=== PATIENT | male | born 1955 | race Hispanic/Latino ===

== ENCOUNTER 2016-07-16 12:41 | Day surgery (SDC) | payer MEDICAID ==
[2015-11-02 13:17] VITALS: BMI 22.7
[2016-07-16] MEDS ORDERED: Ciprofloxacin 400mg/200ml D5W 400 MG/200 ML BAG IVPB ONE (13:34)
[2016-07-16] MEDS ORDERED: Lactated Ringer's 1,000 ML IV ONE (13:45)
[2016-07-16] MEDS ORDERED: Midazolam 2 MG/2 ML VIAL ONE (13:49)
[2016-07-16] MEDS ORDERED: Propofol 10 mg/ml Inj (20 ML) ONE (13:49)
[2016-07-16] MEDS ORDERED: HYDROmorphone 0.5 mg/0.5 ml ISec IVP PRN (15:47)
[2016-07-16 16:08] VITALS: BP 130/70; PULSE 70; RESP 18; TEMP 97.9; O2SAT 98
--- NOTE | 2016-07-16 19:23 | OP ---
PROCEDURE DATE: 07/16/2016 PREOPERATIVE DIAGNOSIS: Bladder tumor, rule out recurrent. POSTOPERATIVE DIAGNOSIS: Large bladder tumor on the dome of the bladder. PROCEDURE: Cystoscopy and transurethral resection of bladder tumor. DESCRIPTION OF THE PROCEDURE: While the patient was in lithotomy position and after starting sedatio n and later LMA, the patient given Cipro 400 mg, consent was checked and the patient identified. Pro tection for the lower extremity placed around both legs. Cystoscopy done, which revealed large prost ate, urethra normal down to the trigone, normal. The dome showed a tumor sitting with papillary, mul tiple, with a wide base. Attempt to fulgurate it was not successful, so the bladder filled, the scop e removed, TUR resectoscope sheath inserted, the tumor was resected and the base fulgurated. All the tissue was irrigated out. The patient tolerated the procedure well. After emptying the bladder, th e scope removed and patient transferred to the recovery room in stable condition. Marielena Vilchis MD cc: 43 TT: 07/16/2016 19:22:54 daisy
== END 2016-07-16 16:09 | disposition home or self-care (01) ==
LOC: C.SDS 12:41
PROVIDERS: ATTEND Specialist
DX: C67.1 Malignant neoplasm of dome of bladder (principal)
CPT/HCPCS: 52240; 82948; 88305; J0744; J7120

== ENCOUNTER 2017-06-03 11:29 | Day surgery (SDC) | payer MEDICAID ==
[2017-05-21 10:30] VITALS: BMI 25.0
[2017-06-03] MEDS ORDERED: Propofol 10 mg/ml Inj (20 ML) ONE (14:05)
[2017-06-03] MEDS ORDERED: Ciprofloxacin 400mg/200ml D5W 400 MG/200 ML BAG IVPB ONE (14:12)
[2017-06-03] MEDS ORDERED: ePHEDrine 50 mg/ml Inj ONE (14:14)
[2017-06-03] MEDS ORDERED: HYDROmorphone 0.5 mg/0.5 ml ISec IVP PRN (14:40)
[2017-06-03 16:06] VITALS: RESP 18; TEMP 97.8
[2017-06-03 17:10] VITALS: BP 104/81; PULSE 78; O2SAT 99
--- NOTE | 2017-06-04 08:13 | OP ---
PROCEDURE DATE: 06/03/2017 PREOPERATIVE DIAGNOSIS: Rule out recurrent bladder tumor. POSTOPERATIVE DIAGNOSIS: Recurrent multiple bladder tumor. PROCEDURE: Cysto, excision of all the tumor and fulguration-prostatic hypertrophy. DESCRIPTION OF PROCEDURE: While the patient in lithotomy position and after starting anesthesia, genitalia prepped and draped in sterile fashion. The patient given Cipro 400 IV piggy bag, cystoscopy performed with using 22 scope. The urethra normal. bilateral lobe enlargement and medial lobe causing partial obstruction, bladder trabeculated inspecting the bladder revealed tumor on the left trigone about 1 cm above the urethral orifice. Multiple flat lesion on the left and the flat lesion on the posterior wall of the bladder. Bladder trabeculated. All the tumor resected and fulgurated. There was no active bleeding. The patient tolerated the procedure well. After emptying the bladder, the area inspected again and show no evidence of any active bleeding. The patient tolerated the procedure well and transferred to the recovery room in stable condition. Marielena Vilchis MD
== END 2017-06-03 17:00 | disposition home or self-care (01) ==
LOC: C.SDS 11:29
PROVIDERS: ATTEND Specialist
DX: C67.0 Malignant neoplasm of trigone of bladder (principal); C67.2 Malignant neoplasm of lateral wall of bladder; N40.0 Benign prostatic hyperplasia without lower urinary tract symptoms; N32.89 Other specified disorders of bladder
CPT/HCPCS: 52204; 52234; 82948; 88305; J0744

== ENCOUNTER 2018-01-20 10:51 | Day surgery (SDC) | payer MEDICAID ==
[2018-01-15 09:16] VITALS: BMI 22.0
[2018-01-20] MEDS ORDERED: Ciprofloxacin 400mg/200ml D5W 400 MG/200 ML BAG IVPB ONE (13:32)
[2018-01-20] MEDS ORDERED: Propofol 10 mg/ml Inj (20 ML) ONE (13:35)
[2018-01-20] MEDS ORDERED: Midazolam 2 MG/2 ML VIAL ONE (13:35)
[2018-01-20] MEDS ORDERED: Lactated Ringer's 1,000 ML IV SCH (14:45)
[2018-01-20 15:08] VITALS: O2SAT 100
[2018-01-20 15:47] VITALS: RESP 18
[2018-01-20 16:15] VITALS: BP 117/58; PULSE 67; TEMP 97.6
--- NOTE | 2018-01-27 04:21 | OP ---
PROCEDURE DATE: 01/20/2018 PREOPERATIVE DIAGNOSIS: History of bladder tumor. POSTOPERATIVE DIAGNOSIS: History of bladder tumor. PROCEDURES: Cystoscopy, removal of bladder tumor, and fulguration of the base of the tumor. SURGEON: Marielena Vilchis MD DESCRIPTION OF PROCEDURE: While the patient in lithotomy position and while the patient given Cipro 400 mg IV piggyback, a cystoscopy was done which revealed the urethra normal, large prostate causing partial obstruction of the prostatic urethra. Bladder was evaluated. Dome was normal. Trigone was normal. Posterior wall showed small tumor. This was removed, was biopsied and fulgurated. The patient tolerated the procedure well. Inspecting the rest of the bladder revealed no other tumor found. The bladder was emptied. The patient went to the recovery room in stable condition. Marielena Vilchis MD
== END 2018-01-20 16:10 | disposition home or self-care (01) ==
LOC: C.SDS 10:51
PROVIDERS: ATTEND Specialist
DX: C67.2 Malignant neoplasm of lateral wall of bladder (principal); C67.9 Malignant neoplasm of bladder, unspecified
CPT/HCPCS: 52234; 82948; 88305; J0131; J0744

== ENCOUNTER 2018-06-17 09:29 | Outpatient (CLI) | payer MEDICAID | END 2018-06-17 09:30 | disposition home or self-care (01) | LOC: C.VASC 09:29 ==